=== PATIENT | male | born 1965 | race Caucasian/White ===

== ENCOUNTER 2018-03-07 05:48 | Outpatient (CLI) | payer BC ==
[~2018-03-07] VITALS: Ht 180.3 cm; Wt 111.1 kg
== END 2018-03-07 15:04 | disposition home or self-care (01) ==
LOC: PREOP 05:48
PROVIDERS: ATTEND Surgery
DX: Z01.818 Encounter for other preprocedural examination (principal)

== ENCOUNTER 2018-03-14 08:57 | Day surgery (SDC) | payer BC ==
[~2018-03-14] VITALS: Ht 180.3 cm; Wt 111.1 kg
[2018-03-14 09:00] VITALS: BP 126/74
--- OUTSIDE RECORDS SUMMARY | 2018-03-14 09:01 | XMS REPORT | Continuity of Care Document ---
Author Author [facility] Organization [facility] Address Unknown Phone Unavailable Allergies Active Description Code Type Severity Reaction Onset Reported/Identified Relationship to Patient Clinical Status Yes No Known Drug Allergies [id number] Drug Allergy Unknown N/A 08/03/2015 Medications There is no data. Problems Date Dx Coded Attending Type Code Diagnosis Diagnosed By 08/03/2015 MACY MCRAE MD Ot S02.119A 08/03/2015 MACY MCRAE MD Ot S06.5X0A 08/03/2015 MACY MCRAE MD Ot W17.89XA 08/03/2015 MACY MCRAE MD Ot Y92.520 08/03/2015 MACY MCRAE MD Ot Y93.51 08/03/2015 MACY MCRAE MD Ot Y99.8 Procedures There is no data. Results There is no data. Encounters ACCT No. Visit Date/Time Discharge Status Pt. Type Provider Facility Loc./Unit Complaint [id number] 08/03/2015 10:21:00 08/03/2015 12:37:00 DIS Emergency MACY MCRAE MD [facility] ER [id number] 03/14/2018 09:45:00 PEN Preadmit BRADY CHRISTIAN DO [facility] ENDO SCREENING
[2018-03-14] MEDS ORDERED: LACTATED RINGERS 1,000 ML IV STA (09:09)
[2018-03-14] MEDS ORDERED: LACTATED RINGERS 1,000 ML IV ONE (09:13)
[2018-03-14] MEDS ORDERED: LACTATED RINGERS 1,000 ML IV SCH (09:15)
[2018-03-14] MEDS ORDERED: PROPOFOL INJECTION 50 ML IV ONE (10:28)
[2018-03-14] MEDS ORDERED: MIDAZOLAM 5 MG/5 ML (VERSED) VIAL ONE (10:28)
--- NOTE | 2018-03-14 10:29 | Progress Note-Pre Operative ---
Pre-Operative Progress Note H&P Reviewed The H&P was reviewed, patient examined and no changes noted. Date Seen by Provider: Mar 14, 2018 Time Seen by Provider: 10: Date H&P Reviewed: Mar 14, 2018 Time H&P Reviewed: 10:29 Pre-Operative Diagnosis: screening colonoscopy BRADY CHRISTIAN DO Mar 14, 2018 10:29
--- NOTE | 2018-03-14 10:59 | Progress Note-Post Operative ---
Post-Operative Progess Note Surgeon (s)/Nozzle Cement Sprayer Helper (s) Surgeon BRADY CHRISTIAN DO Nozzle Cement Sprayer Helper: na Pre-Operative Diagnosis screening colonoscopy Post-Operative Diagnosis sigmoid colon polyp Procedure & Operative Findings Date of Procedure 03/14/18 Procedure Performed/Findings colonoscopy c hot bx polypectomy Anesthesia Type per mda Estimated Blood Loss Estimated blood loss (mL): none Specimens/Packing Specimens Removed sigmoid polyp BRADY CHRISTIAN DO Mar 14, 2018 10:59
--- NOTE | 2018-03-14 11:00 | Discharge Inst-Simple/Standard ---
Discharge Inst-Standard Patient Instructions/Follow Up Plan of Care/Instructions/FU: 2 weeks Bernardo Activity as Tolerated: Yes Discharge Diet: Regular Diet (high fiber) BRADY CHRISTIAN DO Mar 14, 2018 11:00
--- NOTE | 2018-03-14 11:08 | Anesthesia-General Post-Op ---
MAC Patient Condition Mental Status/LOC: Same as Preop Cardiovascular: Satisfactory Nausea/Vomiting: Absent Respiratory: Satisfactory Pain: Controlled Complications: Absent Post Op Complications Complications None Follow Up Care/Instructions Patient Instructions None needed. Anesthesiology Discharge Order Discharge Order Patient is doing well, no complaints, stable vital signs, no apparent adverse anesthesia problems. No complications reported per nursing. SIMA PILLAI CRNA Mar 14, 2018 11:08
[2018-03-14 11:10] VITALS: BP 130/81
[2018-03-14 11:36] VITALS: BP 127/69
[2018-03-14 11:40] VITALS: BP 127/69
--- NOTE | 2018-03-14 16:27 | OPERATIVE REPORT ---
DATE OF SERVICE: 03/14/2018 PREOPERATIVE DIAGNOSIS: Screening colonoscopy. POSTOPERATIVE DIAGNOSIS: Sigmoid colon polyp. PROCEDURE: Colonoscopy with hot biopsy polypectomy of sigmoid colon polyp. SURGEON: Brady Chang DO. ANESTHESIA: Per MDA. ESTIMATED BLOOD LOSS: None. COMPLICATIONS: None. INDICATIONS: The patient is a 52-year-old male due for screening colonoscopy. He understands risks and benefits of procedure and wished to proceed with procedure. Consent was signed on the chart. DESCRIPTION OF PROCEDURE: The patient was taken to the endoscopy suite, placed in left lateral recumbent position. Timeout was performed. Digital rectal exam was performed noting some hemorrhoidal disease. Scope was inserted in the rectum, advanced all the way to the cecum with minimal difficulty. Prep was adequate. Scope was then slowly retracted back. There were no polyps, mass or ulcerations within the cecum, ascending, transverse and descending colon. Within the sigmoid colon, a small polyp was present, which hot biopsy polypectomy was performed. The scope was continuously retracted back in the rectum, where it was also retroflexed noting hemorrhoidal disease. No polyps, mass or ulcerations. The scope was returned to its normal position, slowly withdrawn until completely removed. The patient tolerated the procedure well without any complications, taken to recovery room in stable condition. RECOMMENDATIONS: The patient will need repeat colonoscopy in 5 years. If he has any problems prior to that, he should be reevaluated at that time. If the patient has any problems with hemorrhoids, I will consider HET treatment. Job ID: [id number] DocumentID: [id number] Dictated Date: 03/14/2018 11:02:45 Bricklayer Date: 03/14/2018 16:27:25 Dictated By: BRADY CHANG DO
== END 2018-03-14 11:45 | disposition home or self-care (01) ==
LOC: ENDO 08:57
PROVIDERS: ATTEND Surgery
DX: Z12.11 Encounter for screening for malignant neoplasm of colon (principal); D12.5 Benign neoplasm of sigmoid colon; K64.9 Unspecified hemorrhoids
CPT/HCPCS: 88305

== ENCOUNTER 2023-02-16 05:38 | Outpatient (CLI) | payer BC ==
[~2023-02-16] VITALS: Ht 180.3 cm; Wt 130.6 kg
[2023-02-17] MEDS ORDERED: OMEG100032 PO (14:25)
[2023-02-17] MEDS ORDERED: ATOR20TA49 PO (14:25)
[2023-02-17] MEDS ORDERED: TADA10TA14 PO (14:25)
== END 2023-02-17 14:37 | disposition home or self-care (01) ==
LOC: PREOP 05:38
PROVIDERS: ATTEND Surgery
DX: Z01.818 Encounter for other preprocedural examination (principal); Z12.11 Encounter for screening for malignant neoplasm of colon

== ENCOUNTER 2023-03-01 09:20 | Day surgery (SDC) | payer BC ==
[~2023-03-01] VITALS: Ht 180.3 cm; Wt 130.6 kg
[~2023-03-01 09:20] MED LIST: ATOR20TA49 PO; OMEG100032 PO; TADA10TA14 PO
[2023-03-01 09:45] VITALS: BP 143/81
[2023-03-01] MEDS ORDERED: LACTATED RINGERS 1,000 ML IV STA (09:47)
--- NOTE | 2023-03-01 13:49 | Discharge Inst-Simple/Standard ---
Discharge Inst-Standard Patient Instructions/Follow Up Plan of Care/Instructions/FU: 2 weeks Bernardo Activity as Tolerated: Yes Discharge Diet: Regular Diet (high fiber) BRADY CHRISTIAN DO March 01, 2023 13:49
[2023-03-01 13:50] VITALS: BP 130/76
[2023-03-01] MEDS ORDERED: PROPOFOL INJECTION 50 ML IV ONE (13:51)
--- NOTE | 2023-03-01 13:51 | Progress Note-Post Operative ---
Post-Operative Progess Note Surgeon (s)/Universal Grinder Tool (s) Surgeon BRADY CHRISTIAN DO Universal Grinder Tool: na Pre-Operative Diagnosis history of polyps Post-Operative Diagnosis rectal polyp, diverticulosis. Procedure & Operative Findings Date of Procedure 03/01/23 Procedure Performed/Findings colonoscopy with hot bx polypectomy x 1 Anesthesia Type per cuff setter lockstitch Estimated Blood Loss Estimated blood loss (mL): none Specimens/Packing Specimens Removed rectal BRADY CHRISTIAN DO March 01, 2023 13:51
[2023-03-01 13:55] VITALS: BP 127/75
[2023-03-01 14:00] VITALS: BP 124/64
[2023-03-01 14:19] VITALS: BP 124/64
--- NOTE | 2023-03-01 14:40 | Anesthesia-General Post-Op ---
MAC Patient Condition Mental Status/LOC: Same as Preop Cardiovascular: Satisfactory Nausea/Vomiting: Absent Respiratory: Satisfactory Pain: Controlled Complications: Absent Post Op Complications Complications None Follow Up Care/Instructions Patient Instructions None needed. Anesthesiology Discharge Order Discharge Order Patient is doing well, no complaints, stable vital signs, no apparent adverse anesthesia problems. No complications reported per nursing. JACQUES SPRING CRNA March 01, 2023 14:40
--- NOTE | 2023-03-01 19:06 | OPERATIVE REPORT ---
DATE OF SERVICE: 03/01/2023 PREOPERATIVE DIAGNOSIS: History of polyps. POSTOPERATIVE DIAGNOSES: Rectal polyps, diverticulosis. PROCEDURE: Colonoscopy with hot biopsy polypectomy x1. SURGEON: Brady Chang DO ANESTHESIA: Per PERIOPERATIVE NURSE. ESTIMATED BLOOD LOSS: None. COMPLICATIONS: None. COMPLICATIONS: Rectal polyps. INDICATIONS: The patient is a 57-year-old male with history of polyps. He understands risks and benefits of procedure and wished to proceed. Consent was signed and in chart. DESCRIPTION OF PROCEDURE: The patient was taken to endoscopy suite, placed in left lateral recumbent position. Timeout was performed. Digital rectal exam was performed. No palpable polyps, masses or ulcerations. Scope was inserted in the rectum, advanced all the way to the cecum with minimal difficulty. Prep was adequate. Scope was then slowly retracted back. No polyps, masses or ulcerations within the cecum, ascending, transverse, descending and sigmoid colon. Minimal amount diverticulosis present. In the rectum, a small polyp was present, which hot biopsy polypectomy was performed. Scope was retroflexed noting no other pathology. Scope was returned to its normal position, slowly withdrawn until completely removed. The patient tolerated the procedure well without complications, taken to recovery room in stable condition. RECOMMENDATIONS: The patient will need repeat colonoscopy in 5 years, would recommend high fiber diet due to diverticulosis. The patient will follow up on pathology in 2 weeks. Job ID: [id number] DocumentID: [id number] Dictated Date: 03/01/2023 13:52:41 Director Nicu Date: 03/01/2023 19:05:00 Dictated By: BRADY CHANG DO
== END 2023-03-01 14:00 | disposition home or self-care (01) ==
LOC: ENDO 09:20
PROVIDERS: ATTEND Surgery
DX: Z12.11 Encounter for screening for malignant neoplasm of colon (principal); K62.1 Rectal polyp; K57.30 Diverticulosis of large intestine without perforation or abscess without bleeding; E66.9 Obesity, unspecified; Z68.41 Body mass index [BMI] 40.0-44.9, adult